=== PATIENT | male | born 1975 | race Caucasian/White ===

== ENCOUNTER 2020-12-30 10:08 | Outpatient (REF) | payer OTHER, SELFPAY ==
[2020-12-30 11:14] LABS: MANUAL DIFF FLAG NO
[2020-12-30 11:22] LABS: Basophils Percent Auto 0.5 % (0-2); Eosinophils Absolute Auto 0.1 X10*3/uL (0.0-0.4); Eosinophils Percent Auto 1.1 % (0-4); Hematocrit 51.9 % (42-52); Hemoglobin 16.7 g/dl (14.0-18.0); Imm Gran Abs Auto 0.05 X10*3/uL (0.00-0.03); Imm Gran Pct Auto 0.8 % (0.0-0.4); Lymphocytes Absolute Auto 2.2 X10*3/uL (1.2-4.9); Lymphocytes Percent Auto 33.1 % (20-40); Mean Corpuscular HGB Conc 32.2 g/dl (31.0-36.0); Mean Corpuscular Hemoglobin 29.1 pg (27.0-33.0); Mean Corpuscular Volume 90.6 fL (80-98); Mean Platelet Volume 9.2 fL (9.4-12.4); Monocytes Absolute Auto 0.5 X10*3/uL (0.1-1.2); Monocytes Percent Auto 7.1 % (2-11); Neutrophils Absolute Auto 3.8 X10*3/uL (2.0-8.3); Neutrophils Percent Auto 57.4 % (45-73); Platelet Count 278 X10*3/uL (160-400); Red Blood Count 5.73 X10*6/uL (4.60-5.80); Red Cell Distribution Width 13.5 % (11.0-16.0); White Blood Count 6.6 X10*3/uL (4.8-10.8)
[2020-12-30 11:42] LABS: Alanine Aminotransferase 28 U/L (0-40); Albumin Level 4.5 g/dL (3.5-5.0); Alkaline Phosphatase 119 U/L (39-117); Anion Gap 12 (12-20); Aspartate Amino Transferase 18 U/L (5-37); Bilirubin Total 0.5 mg/dL (0.0-1.0); Blood Urea Nitrogen 25 mg/dL (9-16); Calcium 9.3 mg/dL (8.4-10.2); Carbon Dioxide 25 mmol/L (22-29); Chloride 107 mmol/L (96-108); Cholesterol 187 mg/dL; Estimated Glomerular Filt Rate > 60; Glucose Fasting 89 mg/dL (60-99); HDL Cholesterol 54 mg/dL; LDL Cholesterol Calculated 121 mg/dl; Potassium 4.1 mmol/L (3.3-5.1); Sodium 140 mmol/L (135-145); Total Protein 7.1 g/dL (6.5-8.0); Triglycerides 62 mg/dL
[2020-12-30 11:55] LABS: Thyroid Stimulating Hormone 1.55 uIU/mL (0.32-4.0); Vitamin D 25-OH Total 33.9 ng/mL (>30)
== END 2020-12-30 10:09 | disposition home or self-care (01) ==
LOC: HO.LAB 10:08
PROVIDERS: PCP Internal Medicine; Visit Provider Internal Medicine
DX: Z00.00 Encounter for general adult medical examination without abnormal findings (principal); E55.9 Vitamin D deficiency, unspecified
CPT/HCPCS: 36415; 80053; 80061; 82306; 84443; 85025

== ENCOUNTER 2022-02-16 09:50 | Outpatient (REF) | payer OTHER, SELFPAY ==
[2022-02-16 10:00] LABS: MANUAL DIFF FLAG NO
[2022-02-16 10:29] LABS: Basophils Percent Auto 0.5 % (0-2); Eosinophils Absolute Auto 0.1 X10*3/uL (0.0-0.4); Eosinophils Percent Auto 0.8 % (0-4); Hematocrit 51.7 % (42.0-52.0); Hemoglobin 17.1 g/dl (14.0-18.0); Imm Gran Abs Auto 0.04 X10*3/uL (0.00-0.03); Imm Gran Pct Auto 0.6 % (0.0-0.4); Lymphocytes Absolute Auto 2.1 X10*3/uL (1.2-4.9); Mean Corpuscular HGB Conc 33.1 g/dl (31.0-36.0); Mean Corpuscular Hemoglobin 29.8 pg (27.0-33.0); Mean Corpuscular Volume 90.2 fL (80.0-98.0); Mean Platelet Volume 8.7 fL (9.4-12.4); Monocytes Absolute Auto 0.5 X10*3/uL (0.1-1.2); Monocytes Percent Auto 7.2 % (2-11); Neutrophils Absolute Auto 3.7 x10*3/uL (2.0-8.3); Neutrophils Percent Auto 57.9 % (45-73); Platelet Count 310 X10*3/uL (160-400); Red Blood Count 5.73 X10*6/uL (4.60-5.80); Red Cell Distribution Width 13.6 % (11.0-16.0); White Blood Count 6.4 X10*3/uL (4.8-10.8)
[2022-02-16 10:44] LABS: Alanine Aminotransferase 43 U/L (0-40); Albumin Level 4.6 g/dL (3.5-5.0); Alkaline Phosphatase 115 U/L (39-117); Anion Gap 15 (12-20); Aspartate Amino Transferase 23 U/L (5-37); Bilirubin Total 0.4 mg/dL (0.0-1.0); Blood Urea Nitrogen 19 mg/dL (9-16); Calcium 9.3 mg/dL (8.4-10.2); Carbon Dioxide 25 mmol/L (22-29); Chloride 106 mmol/L (96-108); Cholesterol 227 mg/dL; Estimated Glomerular Filt Rate > 60; Glucose Fasting 94 mg/dL (60-99); HDL Cholesterol 52 mg/dL; LDL Cholesterol Calculated 160 mg/dl; Potassium 4.5 mmol/L (3.3-5.1); Sodium 141 mmol/L (135-145); Total Protein 7.4 g/dL (6.5-8.0); Triglycerides 78 mg/dL
[2022-02-16 11:08] LABS: Thyroid Stimulating Hormone 1.72 uIU/mL (0.32-4.0); Vitamin D 25-OH Total 33.6 ng/mL (>30)
== END 2022-02-16 09:51 | disposition home or self-care (01) ==
LOC: HO.LAB 09:50
PROVIDERS: PCP Internal Medicine; Visit Provider Internal Medicine
DX: Z00.00 Encounter for general adult medical examination without abnormal findings (principal); E59 Dietary selenium deficiency
CPT/HCPCS: 36415; 80053; 80061; 82306; 84443; 85025

== ENCOUNTER 2022-07-27 09:52 | Outpatient (REF) | payer OTHER, SELFPAY ==
[2022-07-27 11:31] LABS: Anion Gap 13 (12-20); Blood Urea Nitrogen 20 mg/dL (9-16); Calcium 9.4 mg/dL (8.4-10.2); Carbon Dioxide 24 mmol/L (22-29); Chloride 109 mmol/L (96-108); Cholesterol 227 mg/dL; Estimated Glomerular Filt Rate > 60; Glucose Fasting 96 mg/dL (60-99); HDL Cholesterol 51 mg/dL; LDL Cholesterol Calculated 162 mg/dl; Potassium 4.6 mmol/L (3.3-5.1); Sodium 141 mmol/L (135-145); Triglycerides 73 mg/dL
== END 2022-07-27 09:53 | disposition home or self-care (01) ==
LOC: HO.LAB 09:52
PROVIDERS: Visit Provider Internal Medicine
DX: E78.00 Pure hypercholesterolemia, unspecified (principal)
CPT/HCPCS: 36415; 80048; 80061

== ENCOUNTER 2022-11-16 09:26 | Outpatient (REF) | payer OTHER, SELFPAY ==
[2022-11-16 11:18] LABS: Alanine Aminotransferase 60 U/L (0-40); Albumin Level 4.5 g/dL (3.5-5.0); Alkaline Phosphatase 111 U/L (39-117); Anion Gap 14 (12-20); Aspartate Amino Transferase 26 U/L (5-37); Bilirubin Total 0.6 mg/dL (0.0-1.0); Blood Urea Nitrogen 20 mg/dL (9-16); Calcium 9.4 mg/dL (8.4-10.2); Carbon Dioxide 25 mmol/L (22-29); Chloride 107 mmol/L (96-108); Cholesterol 159 mg/dL; Estimated Glomerular Filt Rate > 60; Glucose Random 91 mg/dL (60-115); HDL Cholesterol 53 mg/dL; Potassium 4.7 mmol/L (3.3-5.1); Sodium 141 mmol/L (135-145)
[2022-11-16 16:03] LABS: LDL Cholesterol Calculated 93 mg/dl; Triglycerides 69 mg/dL
== END 2022-11-16 09:27 | disposition home or self-care (01) ==
LOC: HO.LAB 09:26
PROVIDERS: PCP Internal Medicine; Visit Provider Internal Medicine
DX: E78.00 Pure hypercholesterolemia, unspecified (principal); E55.9 Vitamin D deficiency, unspecified
CPT/HCPCS: 36415; 80053; 80061; 82306

== ENCOUNTER 2024-02-21 08:51 | Outpatient (REF) | payer OTHER, SELFPAY ==
[2024-02-21 09:18] LABS: MANUAL DIFF FLAG NO
[2024-02-21 09:44] LABS: Basophils Percent Auto 0.3 % (0-2); Eosinophils Absolute Auto 0.1 X10*3/uL (0.0-0.4); Hematocrit 50.1 % (42.0-52.0); Hemoglobin 16.8 g/dl (14.0-18.0); Imm Gran Abs Auto 0.03 X10*3/uL (0.00-0.03); Imm Gran Pct Auto 0.5 % (0.0-0.4); Lymphocytes Percent Auto 31.8 % (20-40); Mean Corpuscular HGB Conc 33.5 g/dl (31.0-36.0); Mean Corpuscular Hemoglobin 29.8 pg (27.0-33.0); Mean Platelet Volume 8.5 fL (9.4-12.4); Monocytes Absolute Auto 0.4 X10*3/uL (0.1-1.2); Neutrophils Absolute Auto 3.7 x10*3/uL (2.0-8.3); Neutrophils Percent Auto 59.4 % (45-73); Platelet Count 292 X10*3/uL (160-400); Red Blood Count 5.63 X10*6/uL (4.60-5.80); Red Cell Distribution Width 13.7 % (11.0-16.0); White Blood Count 6.3 X10*3/uL (4.8-10.8)
[2024-02-21 10:18] LABS: Cholesterol 155 mg/dL (<200); HDL Cholesterol 61 mg/dL (>40); LDL Cholesterol Calculated 78 mg/dL (<100); Triglycerides 80 mg/dL (<150)
[2024-02-21 10:20] LABS: Thyroid Stimulating Hormone 1.52 uIU/mL (0.32-4.0); Vitamin D 25-OH Total 39.6 ng/mL (>30)
== END 2024-02-21 08:52 | disposition home or self-care (01) ==
LOC: HO.LAB 08:51
PROVIDERS: PCP Internal Medicine; Visit Provider Internal Medicine
DX: Z00.00 Encounter for general adult medical examination without abnormal findings (principal); E78.00 Pure hypercholesterolemia, unspecified; E55.9 Vitamin D deficiency, unspecified
CPT/HCPCS: 36415; 80061; 82306; 84443; 85025

== ENCOUNTER 2024-03-13 09:18 | Outpatient (REF) | payer OTHER, SELFPAY ==
[2024-03-13 10:20] LABS: Glucose Fasting 102 mg/dL (60-99)
== END 2024-03-13 09:19 | disposition home or self-care (01) ==
LOC: HO.LAB 09:18
PROVIDERS: PCP Internal Medicine; Visit Provider Internal Medicine
DX: Z00.00 Encounter for general adult medical examination without abnormal findings (principal); E78.00 Pure hypercholesterolemia, unspecified
CPT/HCPCS: 36415; 82947

== ENCOUNTER 2025-02-08 15:22 | Outpatient (AMB) | payer OTHER, SELFPAY ==
--- NOTE | 2025-02-08 15:25 | A.OFFPC_ITS ---
Vital Signs 02/08/25 15:29 Height 5 ft 3.78 in Weight 177 lb BMI 30.6 BP 136/80 Respiration 16 Pulse 90 Pulse Source Pulse Oximeter Temp 98.2 F Temp Source Temporal Artery Scan Pulse Oximetry (%) 98 Oxygen Delivery Method Room Air Intake Visit Reasons: Physical Consulting Hr Professional Required: No Accompanied by: Self / Same As Patient Allergies keflex Allergy (Uncoded 02/09/25 10:14) Itching Medication List - Last Reconciled 02/09/25 by Ovidio Cameron MD budesonide 32 mcg/actuation 2 sprays intranasal DAILY cholecalciferol (vitamin D3) 50 mcg PO DAILY rosuvastatin 5 mg PO DAILY 90 days Tobacco use date assessed: 02/08/25 Dental Screening Dental Screen Date: 02/08/25 Did you have a dental visit in the last 12 months?: Yes Did you have a dental problem in the last 6 months where you did not have access to dental care?: No Was dental information given to patient?: Patient has dentist [facility] Medical History (Updated 02/09/25 @ 10:15 by Ovidio Cameron MD) Allergic rhinitis due to allergen Hyperlipidemia Family History Father Kidney stones Diabetes High cholesterol Mother Von Willebrand disease Social History Housing: Condominium Alcohol intake: current Alcohol intake frequency: does not drink Patient Tobacco Use Status: Never used Tobacco service: No Current occupational status: employed Cognitive needs: No Hearing needs: No Vision needs: Yes (rx glasses) Questionnaire PHQ-9 Over the last 2 weeks, how often have you been bothered by any of the following problems? 1. Little interest or pleasure in doing things: not at all 2. Feeling down, depressed, or hopeless: not at all 3. Trouble falling or staying asleep, or sleeping too much: not at all 4. Feeling tired or having little energy: not at all 5. Poor appetite or overeating: not at all 6. Feeling bad about yourself - or that you are a failure or have let yourself or your family down: not at all 7. Trouble concentrating on things, such as reading the newspaper or watching television: not at all 8. Moving or speaking so slowly that other people could have noticed. Or the opposite - being so fidgety or restless that you have been moving around a lot more than usual: not at all 9. Thoughts that you would be better off or of hurting yourself in some way: not at all Total score: 0 Depression Screening Interpretation: Negative Depression Screening Done: Yes Source: Developed by Drs. Mason Diamond, Jaye Hernandez, Dann Michael and colleagues, with an educational brooklyn from [employer]. Thrive Questionnaire Date Thrive assessed: 02/08/25 I am a: Patient What is your living situation today?: I have a steady place to live Within the past 12 months, did the food you bought not last and you didn't have the money to get more?: Never true Within the past 12 months, did you worry whether your food would run out before you got money to buy more?: Never true Do you have trouble paying for medicines?: No Do you have trouble getting transportation to medical appointments?: No Do you have trouble paying your heating and electricity bill?: No Do you have trouble taking care of your child, family member or friend?: No Do you have trouble with day-to-day activities such as bathing, preparing meals, shopping, managing finances, etc.?: No Are you currently unemployed and looking for a job?: No Are you interested in more education?: No Please select the resources that you would like help with: None THRIVE Score: 0 AUDIT C Alcohol Use Questionnaire (AUDIT-C) 1. How often do you have a drink containing alcohol?: Never 3. How often do you have six or more drinks on one occasion?: Never Total Score: 0 CATALINO-7 AMB Questionnaire CATALINO-7 Date CATALINO - 7 assessed: 02/08/25 Feeling nervous, anxious, or on edge: 0 = Not at all Not being able to stop or control worryin = Not at all Worrying too much about different things: 0 = Not at all Trouble relaxin = Not at all Being so restless that it is hard to sit still: 0 = Not at all Becoming easily annoyed or irritable: 0 = Not at all Feeling afraid as if something awful might happen: 0 = Not at all Total CATALINO-7 score (0-4 normal; 5-9 mild; 10-14 moderate; 15-21 severe): 0 Source: Developed by Drs. Mason Diamond, Jaye Hernandez, Dann Michael and colleagues, with an educational brooklyn from [employer]. Physical exam (Primary Care) Vital Signs: Last Vital Signs Temp 98.2 F 02/08/25 15:29 Pulse 90 02/08/25 15:29 Resp 16 02/08/25 15:29 BP 136/80 02/08/25 15:29 Pulse Ox 98 02/08/25 15:29 Oxygen Delivery Method Room Air 02/08/25 15:29 Care Plan Goal for BP management: BP is in range BMI result Body Mass Index 30.6 BMI Assessment/Plan discussion: High (One pound per week weight loss suggested) BMI High, discussed plan: lifestyle and weight reduction Tobacco/Smoking Status: Tobacco use Status Tobacco use date assessed 02/08/25 02/08/25 15:36 Patient Tobacco Use Status Never used Tobacco 02/08/25 15:36 PHQ-9: PHQ-9 Score PHQ-9: Total score 0 02/09/25 10:19 Depression Screening Interpretation: Negative Thrive Assessment: Date of Thrive Assessment Date Thrive assessed 02/08/25 02/08/25 15:36 Coding Level of Care Code New Pt Prev Care 40-64y(80404) Diagnoses Hyperlipidemia E78.5 Allergic rhinitis due to allergen J30.9 Annual physical exam Z00.00 Assessment & Plan Assessment & Plan (1) Hyperlipidemia: Code(s): E78.5 - Hyperlipidemia, unspecified Category: Medical Plan: Will call with BW results (2) Allergic rhinitis due to allergen: Code(s): J30.9 - Allergic rhinitis, unspecified Category: Medical Plan: Continue current medications (3) Annual physical exam: Code(s): Z00.00 - Encounter for general adult medical examination without abnormal findings Plan: History of Present Illness - The patient is a 49-year-old male presenting for an annual physical examination. - Hyperlipidemia: Managed with rosuvastatin, with no current need for refills. - Chronic sinusitis: Long-term use of beclomethasone nasal spray, stable condition. - Sacroiliac joint dysfunction: Chronic back pain, previously managed with physical therapy and direct care staffer, currently controlled with activity modification and a sacroiliac joint brace. - Preventative care: Negative Cologuard test, future colonoscopy planned. Social History - Employment: merchandising manager, primarily indoor work, able to manage pain by sitting as needed. - Substance use: Denies smoking, alcohol, and drug use. - Exercise: Limited due to back pain, walking and standing exacerbate symptoms. Review of Systems - General: Denies any current health concerns. - Eyes: Wears glasses for distance and near vision, denies halos around lights. - Ears: Hearing is normal, able to converse on the phone and watch television at normal volume. - Musculoskeletal: Reports chronic back pain due to sacroiliac joint dysfunction, worsened by walking and standing. - Sleep: Denies trouble sleeping. - Gastrointestinal: Denies trouble chewing. Physical Exam General: Cooperative and healthy appearing Nutritional Appearance: Well nourished Orientation/consciousness: Patient oriented x3 Limitations: No limitations Head: Normal to inspection General: Appearance normal, both eyes and all related structures Neck: Normal visual inspection Chest: Normal palpation of entire chest wall Respiratory: N ormal respiratory effort Neurology: Patient oriented x3, reports chronic back pain due to SI joint problems. Results - Screening Tests: Cologuard test negative. Plan 1. Hyperlipidemia - Continue rosuvastatin therapy. - Follow-up in six months for cholesterol re-evaluation. 2. Chronic Sinusitis - Continue beclomethasone nasal spray as needed. 3. Sacroiliac Joint Dysfunction - Continue using sacroiliac joint brace during activities. - Consider future physical therapy if symptoms worsen. 4. Preventative Care - Plan for colonoscopy in the future. - Conduct fasting blood work for routine screening. Discussion Notes During the visit, we discussed the continuation of rosuvastatin for hyperlipidemia management and the use of beclomethasone nasal spray for chronic sinusitis. We also reviewed the patient's sacroiliac joint dysfunction management, including the use of a brace and potential future physical therapy. Preventative care measures, such as a future colonoscopy and fasting blood work, were also addressed. Follow-up was scheduled for six months to re-evaluate cholesterol levels. Patient Instructions - Continue taking rosuvastatin as prescribed. - Use beclomethasone nasal spray as needed for sinusitis. - Wear sacroiliac joint brace during activities to manage back pain. - Schedule a colonoscopy as part of preventative care. - Complete fasting blood work as instructed. - Follow up in six months for cholesterol check. Medications: Discontinued amoxicillin-pot clavulanate 875-125 mg Discontinued Reason: Patient Completed Course 1 tab PO BID 10 days 20 tabs 0RF loratadine-pseudoephedrine 5-120 mg ER (Claritin-D 12 Hour) Discontinued Reason: Patient no longer taking 1 tab PO Q12H 30 tabs 0RF
[2025-02-08 15:29] VITALS: BP 136/80; PULSE 90; RESP 16; TEMP 36.8; O2SAT 98; BMI 30.6
--- OUTSIDE RECORDS SUMMARY | 2025-02-08 16:17 | XMS_ITS ---
Author Name [facility] Organization Unknown History of Medication Use Medication Directions Dispensed Refills Start Date End Date Stat us Ibuprofen-Acetaminop hen 125-250 MG Tab Take by mouth. ac tive Potassium Gluconate 550 MG Tab Take 1 tablet by mouth daily. active Vitamin D3 (CHOLECALCIFEROL) 50 MCG (2000 UT) tablet Take 1 tablet (2,000 Units total) by mouth daily. active Allergies Allergen Reaction Severity Comment Documented Date Source Statu s [facility] Problems Problem Status Onset Date Problem Type Date of Resoluti on Source Sacroiliitis active 2024-09-19 ProblemAct CCT Encounters Encounter Type Encounter Reason Primary Diagnosis Location Date Ambulatory Sacroiliitis, not elsewhere classified Sacroiliitis, not elsewhere classified [facility] 09/03/2024 Ambulatory Sacroiliitis, not elsewhere classified Sacroiliitis, not elsewhere classified [facility] 07/19/2024 Ambulatory Sacroiliitis, not elsewhere classified Sacroiliitis, not elsewhere classified [facility] 06/11/2024 Ambulatory [facility] 04/29/2024 Care Team Organization Name Specialty Phone Email Start Date End Da te [facility] 05/01/2024 025 [facility] [employer] [employer] 04/22/2024
--- OUTSIDE RECORDS SUMMARY | 2025-02-08 16:17 | XMS_ITS | Data Portability ---
Author Organization [place] - [facility], Allergy Address [address] [address] Care Team Providers Care Technology Program Manager Name Role Phone FRANCINE ASH Primary Care Provider Assessment Encounter Date Assessment Date Assessment LastModified by Organization Details LastModified Time 08/18/2024 08/18/2024 49-year-old male with history of allergic rhinitis presents for follow-up of chronic rhinitis. Nasal mucosa is dry bilaterally. Patient has been doing well on Beconase and refill was provided. I recommended use of saline nasal spray 5-6 times a day and a water based lubricant intranasally TID. We discussed risks of roasterman use of Beconase and discussed if possible to stop using Beconase periodically to prevent thinning of the nasal mucosa. Continue regular optometry visits to monitor occular pressure. He will follow up in 1 year or sooner if needed. [email or web address] Not available 08/18/2024 15:10:04 Plan of Treatment Reminders Order Date Submit Date Provider Last Modified By Organization Details Last Modified Time Details Appointments None recorded. Lab None recorded. Referral None recorded. Procedures None recorded. Surgeries None recorded. Imaging None recorded. Medication Orders Beconase AQ 42 mcg (0.042 %) nasal spray 2024 025 [id number], [address] [facility], [place], [place], [phone], 15:08:58 Patient TargetsNo targets recorded. Patient InstructionsNo instructions recorded. Reason for Referral None Reported. Problems Name Problem SNOMED Code Status Onset Date Resolution Date Notes Provider Name and Address Organization Details Recorded Time Allergic rhinitis 74074406 Active 2015 Allergic Rhinitis; Note: Date Diagnosed: 07/18/2014 11:47 AM (477.9) ; Start Date : 07/18/2014 Allergic rhinitis, unspecifie d; Note: Date Diagnosed: 01/23/2016 2:38 PM (J30.9) Not Available [facility] 4 02:45:09 Deviated nasal septum 094252009 Active 2015 Deviated nasal septum; CMS Risk: moderate risk CMS Treatment: establishe d problem (to examiner): stable or improved N ote: Date Diagnosed: 01/23/2016 2:38 PM (470) ; Start Date : 10/24/2014 Septal Deviation; CMS Risk: moderate risk CMS Treatment: establishe d problem (to examiner): stable or improved N ote: Date Diagnosed: 10/24/2014 3:26 PM (470) ; Start Date : 10/24/2014 Deviated nasal septum; Note: Date Diagnosed: 01/23/2016 2:38 PM (J34.2) Not Available [facility] 4 02:45:07 Acute sinusitis 14024053 Active 2015 Acute sinusitis, unspecifie d; Note: Date Diagnosed: 02/27/2016 11:47 AM (J01.90) Not Available [facility] 4 02:45:02 Chronic rhinitis 06980067 Active 2022 Chronic rhinitis; Note: Date Diagnosed: 08/14/2022 3:14 PM (J31.0) Not Available [facility] 4 02:45:01 Problem Notes None recorded. Medical Equipment None Reported. Allergies Allergen ID Allergen Name Allergen Category Reaction Reaction Severity Criticality Documentation Date Start Date Code Code System Note Provider Name and Address Organization Details Recorded Time 58120 cephalexi n monohydra te medicatio n other Not available Not available 12/02/2023 50144 8 RxNorm React ion: unkno wn, unspe cifie d;; Not Available [facility] 4 01:06:00 Medications Name Sig Start Date Stop Date Status Note LastModified by Organization Details LastModified Time budesonid e 32 mcg/actua tion nasal spray SHAKE LIQUID AND USE 2 SPRAYS IN EACH NOSTRIL EVERY DAY active Not Available Not Available No t Available prednison e 20 mg tablet 2 tablet by mouth 2015 active Medicati on ID: [id number] D uration Value: 5 Prescri bed By Name: PEDRO Rodriguez nd Name: predniso ne Send Method: E-Prescr ibed Sub s Allowed: subs OK Medic ationGen ericName : predniso ne Not Available Not Available Not Available Biaxin 500 mg tablet 1 tablet by mouth 2015 active Medicati on ID: [id number] D uration Value: 10 Prescri bed By Name: PEDRO Rodriguez nd Name: Biaxin S end Method: E-Prescr ibed Sub s Allowed: subs OK Medic ationGen ericName : Biaxin Not Available Not Available Not Available aspirin 325 mg tablet,de layed release TAKE 1 TABLET BY MOUTH EVERY DAY WITH A MEAL active Not Available Not Available No t Available Beconase AQ 42 mcg (0.042 %) nasal spray Newell 2 spray into both nostrils BID x 30 days 2024 active Not Available Not Available Not Avai lable doxycycli ne monohydra te 100 mg capsule 1 capsule by mouth 2019 active Medicati on ID: [id number] D uration Value: 10 Prescri bed By Name: PEDRO Rodriguez nd Name: doxycycl ine monohydr ate Send Method: E-Prescr ibed Sub s Allowed: subs OK Medic ationGen ericName : doxycycl ine monohydr ate Not Available Not Available Not Available flunisoli de 25 mcg (0.025 %) nasal spray 2 spray 2014 active Medicati on ID: [id number] Du ration Value: 90 Prescri bed By Name: Gale Sandoval nd Name: flunisol artem Send Method: E-Prescr ibed Sub s Allowed: subs OK Medic ationGen ericName : flunisol artem Not Available Not Available Not Available amoxicill in 875 mg-potass ium clavulana te 125 mg tablet TAKE 1 TABLET BY MOUTH EVERY 12 HOURS FOR 10 DAYS active Not Available Not Available No t Available oxycodone 5 mg tablet TAKE 1 TABLET BY MOUTH EVERY 6 HOURS FOR 5 DAYS NEEDED active Not Available Not Available No t Available rosuvasta tin 5 mg tablet TAKE 1 TABLET BY MOUTH DAILY active Not Available Not Available No t Available Astelin 01/22 completed Medicati on ID: [id number] Br and Name: patrick Send Method: E-Prescr ibed Sub s Allowed: subs OK Medic ationGen ericName : astelin Not Available Not Available Not Available Soma 250 mg tablet 01/22 completed Medicati on ID: [id number] Br and Name: Abigail Sen d Method: E-Prescr ibed Sub s Allowed: subs OK Medic ationGen ericName : Soma Not Available Not Available Not Available Loratadin e-D 5 mg-120 mg tablet,ex tended release 12 hr TAKE 1 TABLET BY MOUTH EVERY 12 HOURS active Not Available Not Available No t Available Vitals Date Recorded Body weight Body mass index (BMI) Body height Provider Name and Address Organization Details Last Updated DateTime 08/18/2024 07314.7 g 29.2 kg/m2 162.56 cm Adrianne Skinner [place] - [facility] 08/18/2024 14:22:13 Social History None recorded. Functional Status None recorded. Mental Status None recorded. Family History Nothing Reported. Medical History No medical history recorded. Past Encounters Encounter ID Performer Location Encounter Start Date Encounter Closed Date Diagnosis/Indication Diagnosis SNOMED-CT Code Diagnosis ICD10 Code Diagnosis Note [id number] MARV BOUCHER PA-C [facility] [address] [address] 08/18/2024 14:07:56 08/18/2024 15:19:15 Chronic rhinitis 03225393 J31.0 Health Concerns Section Related Observation LastModified by Organization Detai ls LastModified Time None Recorded Concern Status LastModified by Organization Details LastModified Time None Recorded Advance Directives Directive None Recorded Payers Insurance Date Sequence Insurance Name Policy Number Policy Bell Covered Member ID Bell Member ID Guarantor Name 08/18/2024 1 [facility] [id number] Frederic [id number] Frederic Gordon Notes Date Note Type Note Provider Name and Address Organization Details Recorded Time 08/18/2024 text/html 49-year-old male with history of allergic rhinitis presents for follow-up of chronic rhinitis. He uses Beconase nasal spray with improvement in symptoms. Patient uses 2 spray in each nostril once BID. He does not use nasal spray on weekends. Had one sinus infection in the past two years. Had had a few episodes of epistaxis. He uses saline nasal spray once daily and uses a humidifier in the winter. Patient also follows up with his molder meat for routine visits and to monitor occular pressure. DOLLY ROLDAN MD [address] [place] [address], [place], [address], [facility] - [facility] 08/18/2024 16:59:41
--- OUTSIDE RECORDS SUMMARY | 2025-02-08 16:17 | XMS_ITS | Encounter Summary ---
Author Organization [facility] Address [address] [place] [address] Care Team Providers Care Triage Specialist Name Role Phone Mason Wilcox DO Primary Care Provider [phone] Encounter Details Date Type Department Care Team (Late st Contact Info) Description 06/21/2024 Scanned Document [facility] [place] [address] [facility] [address] [place] [phone] Radha Dumas PA-C [address] [place] [address] Social History Tobacco Use Types Packs/Day Years Used Date Smoking Tobacco: Never Smokeless Tobacco: Never Alcohol Use Standard Drinks/Week Comments Never 0 (1 standard drink = 0.6 oz pur e alcohol) Sex and Gender Information Value Date Recorded Sex Assigned at Male 05/31/2024 11:19 AM EST Legal Sex Male 7:09 AM EDT Gender Identity Male 05/31/2024 11:19 AM EST Sexual Orientation Heterosexual (straight) 05/31 11:19 AM EST documented as of this encounter Plan of Treatment Not on file documented as of this encounter Visit Diagnoses Not on filedocumented in this encounter Care Teams Triage Specialist Relationship Specialty Start Date End Date Mason Wilcox DO [address] [place] [id number] PCP - General Internal Medicine 04/21/24 documented as of this encounter
== END 2025-02-08 15:51 | disposition home or self-care (01) ==
LOC: HO.HMCSH 15:22
PROVIDERS: PCP Internal Medicine; Visit Provider Internal Medicine
DX: E78.5 Hyperlipidemia, unspecified (principal); J30.9 Allergic rhinitis, unspecified; Z00.00 Encounter for general adult medical examination without abnormal findings

== ENCOUNTER 2025-02-19 09:08 | Outpatient (REF) | payer OTHER, SELFPAY ==
--- OUTSIDE RECORDS SUMMARY | 2025-02-19 09:10 | XMS_ITS | Encounter Summary ---
Author Organization [facility] Address [address] [place] [address] Care Team Providers Care Compounder [employer] Name Role Phone Mason Wilcox DO Primary Care Provider [phone] Encounter Details Date Type Department Care Team (Late st Contact Info) Description 06/21/2024 Scanned Document [facility] Neurosurgery [place] [address] [facility] [address] [place] [phone] Radha Dumas PA-C [address] [place] [address] Social History Tobacco Use Types Packs/Day Years [...] on filedocumented in this encounter Care Teams Compounder [employer] Relationship Specialty Start Date End Date Mason Wilcox DO [address] [place] [id number] PCP - General Internal Medicine 04/21/24 documented as of this encounter
[2025-02-19 09:53] LABS: Hematocrit 49.6 % (42.0-52.0); Hemoglobin 16.5 g/dl (14.0-18.0); Mean Corpuscular HGB Conc 33.3 g/dl (31.0-36.0); Mean Corpuscular Hemoglobin 29.6 pg (27.0-33.0); Mean Corpuscular Volume 88.9 fL (80.0-98.0); NRBC Abs Auto 0.000 X10*3/uL (0.0-0.012); NRBC Pct Auto 0.0 /100WBC (0.0-0.2); Platelet Count 292 X10*3/uL (160-400); Red Blood Count 5.58 X10*6/uL (4.60-5.80); White Blood Count 6.2 X10*3/uL (4.8-10.8)
[2025-02-19 10:39] LABS: Alanine Aminotransferase 50 U/L (0-40); Albumin Level 4.8 g/dL (3.5-5.0); Alkaline Phosphatase 119 U/L (39-117); Anion Gap 12 (12-20); Aspartate Amino Transferase 30 U/L (5-37); Blood Urea Nitrogen 19 mg/dL (9-16); Calcium 9.0 mg/dL (8.4-10.2); Carbon Dioxide 24 mmol/L (22-29); Chloride 109 mmol/L (96-108); Cholesterol 147 mg/dL (<200); Estimated Glomerular Filt Rate > 60; HDL Cholesterol 50 mg/dL (>40); Potassium 3.9 mmol/L (3.3-5.1); Sodium 141 mmol/L (135-145); Total Protein 7.8 g/dL (6.5-8.0); Triglycerides 56 mg/dL (<150)
[2025-02-19 10:54] LABS: Thyroid Stimulating Hormone 2.32 uIU/mL (0.32-4.0)
== END 2025-02-19 09:09 | disposition home or self-care (01) ==
LOC: HO.LAB 09:08
PROVIDERS: PCP Internal Medicine; Visit Provider Internal Medicine
DX: E78.5 Hyperlipidemia, unspecified (principal)
CPT/HCPCS: 36415; 80048; 80061; 80076; 84443; 85027